=== PATIENT | female | born 1950 | race Caucasian/White ===

== ENCOUNTER 2023-09-22 21:12 | Emergency (ER) | payer MEDICARE, OTHER ==
[~2023-09-22] VITALS: Ht 167.6 cm; Wt 66.7 kg
[2023-09-22 22:30] VITALS: BP 112/58; TEMP 98; O2SAT 97
== END 2023-09-22 22:30 | disposition home or self-care (01) ==
LOC: ER 21:16
DX: H57.13 Ocular pain, bilateral (principal)